=== PATIENT | female | born 1975 ===

== ENCOUNTER 2020-07-29 17:28 | Emergency (ER) | payer OTHER ==
[2020-07-29 20:10] LABS: BILIRUBIN NEGATIVE (NEGATIVE); BLOOD NEGATIVE Ery/uL (NEGATIVE); CLARITY CLEAR (CLEAR); COLOR YELLOW (YELLOW); GLUCOSE (U) NORMAL (NORMAL); LEUKOCYTES NEGATIVE Leu/uL (NEGATIVE); NITRITE NEGATIVE (NEGATIVE); PROTEIN NEGATIVE (NEGATIVE); SPECIFIC GRAVITY 1.015 (1.001-1.030); UROBILINOGEN 0.2 mg/dL (0.2-1.0)
[2020-07-29] MEDS ORDERED: CITRATE OF MAG296 ML PO (20:15)
[2020-07-29] MEDS ORDERED: BENTYL10 MG PO (20:15)
== END 2020-07-29 20:32 | disposition home or self-care (01) ==
LOC: FER 17:28
PROVIDERS: Emergency Medicine Emergency Medical Services
DX: R10.30 Lower abdominal pain, unspecified (principal); R09.89 Other specified symptoms and signs involving the circulatory and respiratory systems; R50.9 Fever, unspecified; Z20.828 Contact with and (suspected) exposure to other viral communicable diseases
CPT/HCPCS: 81003; 87880; 99284; U0002